=== PATIENT | male | born 1950 | race Caucasian/White ===

== ENCOUNTER → 2017-02-11 | Outpatient (CLI) | payer MEDICARE ==
[~2017-02-11] MED LIST: GLUC500T; LEVA500T; LIPI10TA; LISI10TA4; PROS5TAB
== END ==
LOC: M SMT 13:30
PROVIDERS: ATTEND Urology
DX: R97.20 Elevated prostate specific antigen [PSA] (principal)

== ENCOUNTER → 2018-02-12 | Outpatient (CLI) | payer MEDICARE ==
[2018-02-13 14:12] LABS: PSA TOTAL 2.6 ng/mL (0.0-4.0)
== END ==
LOC: M SMT 09:27
DX: N40.1 Benign prostatic hyperplasia with lower urinary tract symptoms (principal)
CPT/HCPCS: 84154

== ENCOUNTER → 2019-01-02 | Outpatient (REF) | payer MEDICARE | LOC: M LAB REF 17:14 | PROVIDERS: ATTEND Family Medicine | DX: E07.9 Disorder of thyroid, unspecified (principal) ==

== ENCOUNTER → 2019-02-25 | Outpatient (CLI) | payer MEDICARE ==
[2019-02-26 14:15] LABS: PSA TOTAL 2.4 ng/mL (0.0-4.0)
== END ==
LOC: M SMT 09:09
PROVIDERS: ATTEND Urology
DX: Z12.5 Encounter for screening for malignant neoplasm of prostate (principal)

== ENCOUNTER → 2019-03-02 | Outpatient (REF) | payer MEDICARE ==
[2019-03-02 13:33] LABS: APPEARANCE, URINE CLEAR (CLEAR); BACTERIA, URINE AUTO NEGATIVE (NEGATIVE); BILIRUBIN, URINE AUTO NEGATIVE (NEGATIVE); BLOOD, URINE BLOOD NEGATIVE (NEGATIVE); COLOR, URINE YELLOW (YELLOW); GLUCOSE, URINE (UA) AUTO 3+ mg/dL (NEGATIVE); KETONE, URINE AUTO NEGATIVE (NEGATIVE); LEUKOCYTE ESTERASE, URINE AUTO NEGATIVE (NEGATIVE); MUCUS, URINE SMALL (NEGATIVE); NITRITE, URINE AUTO NEGATIVE (NEGATIVE); PROTEIN, URINE AUTO 1+ mg/dL (NEGATIVE); RBC, URINE AUTO 0 /HPF (0-3); SPECIFIC GRAVITY URINE AUTO 1.022 (1.002-1.035); SQUAMOUS EPITHELIAL CELL UR AU 0 /HPF (0-6); UROBILINOGEN, URINE AUTO 0.2 mg/dL (0.0-2.0); WBC, URINE AUTO 0 /HPF (0-3)
== END ==
LOC: M SMT 13:01
PROVIDERS: ATTEND Nurse Practitioner Women's Health
DX: N40.1 Benign prostatic hyperplasia with lower urinary tract symptoms (principal)
CPT/HCPCS: 51798; 81001; 87086; G0463

== ENCOUNTER → 2019-03-16 | Outpatient (CLI) | payer MEDICARE ==
[2019-03-16 19:01] LABS: BLOOD UREA NITROGEN 13 MG/DL (7-18); CALCIUM LEVEL 8.8 MG/DL (8.8-10.2); CARBON DIOXIDE LEVEL 30 MEQ/L (21-32); CHLORIDE LEVEL 102 MEQ/L (98-107); CREATININE FOR GFR 1.14 MG/DL (0.70-1.30); GLOMERULAR FILTRATION RATE > 60.0 (>49); GLUCOSE, FASTING 199 MG/DL (70-100); POTASSIUM SERUM 4.2 MEQ/L (3.5-5.1); SODIUM LEVEL 139 MEQ/L (136-145)
== END ==
LOC: M SMT 14:19
PROVIDERS: ATTEND Nurse Practitioner Women's Health
DX: R10.31 Right lower quadrant pain (principal)

== ENCOUNTER → 2019-03-21 | Outpatient (CLI) | payer MEDICARE ==
[~2019-03-21] MED LIST changes: +ISOVUE-370 76% 100ML VIAL (Q9967) As Ordered ONE
--- NOTE | 2019-03-21 11:31 | REP ---
REASON FOR EXAM: Groin pain. No prior CTs for comparison. CONTRAST: 100 mL Isovue 370. No bowel preparatory contrast was administered prior to the exam. In the right groin there is a 1.6 x 2.5 x 1.3 cm sized density equal to calcific density. The bowel loops and their mesenteries are within normal limits. There is no free fluid or free air. There is prostatomegaly of mixed density. There are spinal degenerative changes along with sacroiliac joint and hip degenerative changes. IMPRESSION: Large right groin calcification of uncertain etiology possibly secondary to a calcified lymph node. This needs to be correlated clinically. Possibility of an old calcified dilated vascular structure is another possibility. No evidence of an inguinal hernia or other hernia. Abnormal appearing prostate gland correlate clinically. Other findings as described above. Electronically Signed by Kranthi Camarillo DO 03/21/2019 12:58 P
== END ==
LOC: M RAD 09:27
PROVIDERS: ATTEND Nurse Practitioner Women's Health
DX: R93.5 Abnormal findings on diagnostic imaging of other abdominal regions, including retroperitoneum (principal)
CPT/HCPCS: 72193; Q9967

== ENCOUNTER → 2019-04-06 | Outpatient (REF) | payer MEDICARE ==
[~2019-04-06] MED LIST changes: -ISOVUE-370 76% 100ML VIAL (Q9967) As Ordered ONE
[2019-04-06 18:16] LABS: FREE T3 2.3 PG/ML (2.2-4.0)
[2019-04-06 18:18] LABS: THYROID PEROXIDASE ANTIBODY 42.3 U/ML (<60.0)
[2019-04-08 09:21] LABS: THRYOGLOBULIN ANTIBODIES (ATA) < 1.0 IU/mL (0.0-0.9); THYROGLOBULIN QUANTITATIVE 4.3 ng/mL (1.4-29.2)
== END ==
LOC: M LAB REF 17:00
PROVIDERS: ATTEND Nurse Practitioner Adult Health
DX: E07.9 Disorder of thyroid, unspecified (principal)

== ENCOUNTER → 2019-11-21 | Outpatient (REF) | payer MEDICARE | LOC: M LAB REF 12:14 | PROVIDERS: ATTEND Family Medicine | DX: E07.9 Disorder of thyroid, unspecified (principal) ==

== ENCOUNTER 2020-04-16 13:39 | Emergency (ER) | payer MEDICARE ==
[~2020-04-16] VITALS: Ht 170.2 cm; Wt 98.2 kg
[2020-04-16] MEDS ORDERED: LISI10TA4 (13:47)
[2020-04-16] MEDS ORDERED: FINA5TAB2 (13:47)
[2020-04-16] MEDS ORDERED: PRAV10TA3 (13:47)
[2020-04-16] MEDS ORDERED: METFORMIN (13:47)
[2020-04-16] MEDS ORDERED: LIDOCAINE 2% 5ML JELLY UROJET TOP ONE (14:30)
[2020-04-16] MEDS ORDERED: NS 1,000 ML IV ONE (14:30)
[2020-04-16 15:18] LABS: BASO % 0.2 % (0.0-1.0); EOS % 0.6 % (0.0-3.0); HEMATOCRIT 40.1 % (42.0-52.0); HEMOGLOBIN 13.8 g/dl (13.5-17.5); LYMPH # 0.6 10^3/uL (1.5-5.0); LYMPH % 9.9 % (24.0-44.0); MEAN CORPUSCULAR HEMOGLOBIN 30.5 pg (27.0-33.0); MEAN CORPUSCULAR HGB CONC 34.4 g/dl (32.0-36.5); MEAN CORPUSCULAR VOLUME 88.7 fl (80.0-96.0); MONO # 0.5 10^3/uL (0.0-0.8); MONO % 8.6 % (0.0-5.0); NEUTROPHILS # 5.1 10^3/uL (1.5-8.5); NEUTROPHILS % 80.5 % (36.0-66.0); PLATELET COUNT, AUTOMATED 203 10^3/uL (150-450); RED BLOOD COUNT 4.52 10^6/uL (4.30-6.10); WHITE BLOOD COUNT 6.3 10^3/uL (4.0-10.0)
[2020-04-16] MEDS ORDERED: CIPROFLOXACIN 400 MG in IV 1 EA IV ONE (17:00)
[2020-04-16] MEDS ORDERED: CIPR-249 PO (17:33)
[2020-04-16 17:53] VITALS: BP 150/86
== END 2020-04-16 18:07 | disposition home or self-care (01) ==
LOC: M ED 13:39
DX: R33.9 Retention of urine, unspecified (principal); N30.90 Cystitis, unspecified without hematuria; E11.9 Type 2 diabetes mellitus without complications; I10 Essential (primary) hypertension; E78.5 Hyperlipidemia, unspecified; N40.0 Benign prostatic hyperplasia without lower urinary tract symptoms; M51.9 Unspecified thoracic, thoracolumbar and lumbosacral intervertebral disc disorder; Z85.038 Personal history of other malignant neoplasm of large intestine; Z79.899 Other long term (current) drug therapy; Z79.84 Long term (current) use of oral hypoglycemic drugs
CPT/HCPCS: 51702; 80047; 81001; 85025; 87088; 87186; 96361; 96365; 99284; J0744

== ENCOUNTER → 2020-04-26 | Outpatient (REF) | payer MEDICARE ==
[~2020-04-26] MED LIST changes: +CIPR-249 PO; +FINA5TAB2; +METFORMIN; +PRAV10TA3
== END ==
LOC: M SMT 16:49
PROVIDERS: ATTEND Urology
DX: N28.89 Other specified disorders of kidney and ureter (principal)

== ENCOUNTER → 2020-06-05 | Outpatient (REF) | payer MEDICARE | LOC: M SMT 14:27 | PROVIDERS: ATTEND Urology | DX: Z01.818 Encounter for other preprocedural examination (principal); R33.9 Retention of urine, unspecified ==

== ENCOUNTER 2020-06-07 12:50 | Day surgery (SDC) | payer MEDICARE ==
[~2020-06-07] VITALS: Ht 170.2 cm; Wt 96.6 kg
[~2020-06-07 12:50] MED LIST changes: +LIDOCAINE 2% 100MG/5ML SDV (FOR ANES.) As Ordered ONE; +MIDAZOLAM INJ 2MG/2ML VIAL (J2250 PER 1MG) As Ordered ONE; +fentaNYL 250 MCG/5 ML INJECTION (J3010) As Ordered ONE; +propofoL 200 MG/20 ML VIAL As Ordered ONE
[2020-06-07] MEDS ORDERED: ceFAZolin 2 GM/D5W 50 ML IV BAG (J0690 PER 500MG) As Ordered ONE (13:40)
[2020-06-07] MEDS ORDERED: ceFAZolin SOD 2 GM in IV 1 EA IV ONE (14:00)
[2020-06-07] MEDS ORDERED: LR 1,000 ML IV ONE (14:00)
[2020-06-07] MEDS ORDERED: HYDROmorphone HCL 2 MG/ML 1ML VIAL (J1170) As Ordered ONE (17:35)
[2020-06-07] MEDS ORDERED: KETOROLAC 60MG 2ML VIAL As Ordered ONE (17:37)
[2020-06-07] MEDS ORDERED: ONDANSETRON 4MG/2ML VIAL As Ordered ONE (17:37)
[2020-06-07] MEDS ORDERED: diphenhydrAMINE 50MG/ML VIAL (J1200) As Ordered ONE (17:37)
[2020-06-07] MEDS ORDERED: DESFLURANE 240 ML INHALANT As Ordered ONE (18:37)
[2020-06-07] MEDS ORDERED: FUROSEMIDE 100MG/10ML VIAL (J1940) As Ordered ONE (19:55)
[2020-06-07] MEDS ORDERED: KETOROLAC 30 MG/ML 1ML VIAL IV PRN (20:04)
[2020-06-07] MEDS ORDERED: fentaNYL 100 MCG/2 ML INJECTION (J3010) IV PRN (21:30)
[2020-06-07] MEDS ORDERED: ACETAMINOPHEN TAB 650MG DOSE (2X325MG) PO PRN (21:30)
[2020-06-07] MEDS ORDERED: oxyCODONE 5MG TAB PO PRN (21:30)
[2020-06-07] MEDS ORDERED: LR 1,000 ML IV SCH (21:30)
[2020-06-07] MEDS ORDERED: ONDANSETRON 4MG/2ML VIAL IV PRN (21:30)
[2020-06-07] MEDS ORDERED: MEPERIDINE INJ 25 MG/ML VIAL (J2175) IV PRN (21:30)
[2020-06-07] MEDS ORDERED: METOCLOPRAMIDE INJ 10MG/2ML VIAL (J2765 PER 1) IV PRN (21:30)
[2020-06-07 22:20] VITALS: BP 137/68
--- NOTE | 2020-07-26 09:16 | RO ---
DATE OF OPERATION: 06/07/2020 PREOPERATIVE DIAGNOSIS: Benign prostatic hyperplasia. POSTOPERATIVE DIAGNOSIS: Benign prostatic hyperplasia. PROCEDURE: Cystoscopy, button transurethral electrovaporization of the prostate. SURGEON: Mars Carvajal MD CASKET LINER: None. ANESTHESIA: General. OPERATIVE INDICATIONS: This is a 69-year-old male with benign prostatic hyperplasia and urinary retention who was brought to the operating room today for treatment. DESCRIPTION OF PROCEDURE: The patient was brought to the operating room and general anesthesia was induced. Prophylactic antibiotics were infused. He was then placed in the dorsal lithotomy position and prepped and draped in the usual sterile fashion. At thia point, a resectoscope was inserted into the urethral meatus and advanced into the bladder. Of note, the patient had trilobar benign prostatic hyperplasia. At this point, I began vaporizing hyperplastic tissue on the median lobe and then circumferentially at the bladder neck. I then started vaporizing hyperplastic tissue on both lateral lobes. I kept doing this until there was a clear channel established into the bladder. Throughout the procedure, I made sure not to vaporize too close to the ureteral orifices or distal to the verumontanum. Once there was a clear channel established, hemostasis was obtained using coagulation current. Once satisfied with hemostasis, the resectoscope was removed and an 18-[place] Farrell catheter was inserted into the bladder. The balloon was filled with 15 mm of sterile water and then the catheter was connected to gravity drainage and this marked the conclusion of the procedure. The patient was taken out of the dorsal lithotomy position; awaken from anesthesia and transferred to the recovery room in stable condition. ESTIMATED BLOOD LOSS: 50 mL. COMPLICATIONS: None. SPECIMENS: None. PLAN: The patient will follow up in the urology clinic in approximately one week for catheter removal and voiding trial. PERICO
== END 2020-06-07 22:25 | disposition home or self-care (01) ==
LOC: M SDC 12:50
PROVIDERS: ATTEND Urology
DX: N40.1 Benign prostatic hyperplasia with lower urinary tract symptoms (principal); E11.9 Type 2 diabetes mellitus without complications; Z79.84 Long term (current) use of oral hypoglycemic drugs; Z79.899 Other long term (current) drug therapy
CPT/HCPCS: 52601; J0690; J1170; J1200; J1885; J1940; J2250; J2405; J3010

== ENCOUNTER → 2021-01-15 | Outpatient (REF) | payer MEDICARE ==
[~2021-01-15] MED LIST changes: -LIDOCAINE 2% 100MG/5ML SDV (FOR ANES.) As Ordered ONE; +LISI10TA22; -MIDAZOLAM INJ 2MG/2ML VIAL (J2250 PER 1MG) As Ordered ONE; -fentaNYL 250 MCG/5 ML INJECTION (J3010) As Ordered ONE; -propofoL 200 MG/20 ML VIAL As Ordered ONE
== END ==
LOC: M LAB REF 12:02
PROVIDERS: ATTEND Family Medicine
DX: E07.9 Disorder of thyroid, unspecified (principal)

== ENCOUNTER → 2022-12-31 | Outpatient (CLI) | payer MEDICARE ==
[~2022-12-31] MED LIST changes: +LEVO25TA5 PO; -LISI10TA22; +LISI10TA22 PO; +METF500T13 PO; -PRAV10TA3; +PRAV10TA3 PO
== END ==
LOC: M LABSMTC 11:32
PROVIDERS: ATTEND Anesthesiology
DX: Z01.818 Encounter for other preprocedural examination (principal); Z11.52 Encounter for screening for COVID-19

== ENCOUNTER 2023-01-05 06:39 | Day surgery (SDC) | payer MEDICARE ==
[~2023-01-05] VITALS: Ht 170.2 cm; Wt 94.3 kg
[~2023-01-05 06:39] MED LIST changes: +CYCLOPENTOLATE 1% OPHTH SOLN 2ML BTL OD SCH; +FLURBIPROFEN 0.03% OPHTH SOLN 2.5 ML OD SCH; +LIDOCAINE 1% SDV 5ML VIAL As Ordered ONE; +PHENYLEPHRINE 2.5% OPHTH SOL 2ML OD SCH; +TETRACAINE 0.5% OPHTH SOLN 4ML OD SCH
[2023-01-05] MEDS ORDERED: LR 1,000 ML IV SCH (07:00)
[2023-01-05] MEDS ORDERED: INSULIN LISPRO (NovoLOG) PER UNIT SC PRN (07:30)
[2023-01-05] MEDS ORDERED: fentaNYL 100 MCG/2 ML INJECTION As Ordered ONE (08:47)
[2023-01-05] MEDS ORDERED: MIDAZOLAM INJ 2MG/2ML VIAL As Ordered ONE (08:47)
[2023-01-05 09:25] VITALS: BP 182/88
== END 2023-01-05 09:40 | disposition home or self-care (01) ==
LOC: M SDC 06:39
PROVIDERS: ATTEND Ophthalmology
DX: H25.11 Age-related nuclear cataract, right eye (principal); I10 Essential (primary) hypertension; E78.00 Pure hypercholesterolemia, unspecified; E11.9 Type 2 diabetes mellitus without complications; E03.9 Hypothyroidism, unspecified; F17.220 Nicotine dependence, chewing tobacco, uncomplicated; Z79.899 Other long term (current) drug therapy; Z79.890 Hormone replacement therapy; Z79.84 Long term (current) use of oral hypoglycemic drugs
CPT/HCPCS: 66984; J2250; J3010; V2632

== ENCOUNTER 2023-02-09 06:12 | Day surgery (SDC) | payer MEDICARE ==
[~2023-02-09] VITALS: Ht 170.2 cm; Wt 92.9 kg
[~2023-02-09 06:12] MED LIST changes: -CYCLOPENTOLATE 1% OPHTH SOLN 2ML BTL OD SCH; +CYCLOPENTOLATE 1% OPHTH SOLN 2ML BTL OS SCH; -FLURBIPROFEN 0.03% OPHTH SOLN 2.5 ML OD SCH; +FLURBIPROFEN 0.03% OPHTH SOLN 2.5 ML OS SCH; -LIDOCAINE 1% SDV 5ML VIAL As Ordered ONE; -PHENYLEPHRINE 2.5% OPHTH SOL 2ML OD SCH; +PHENYLEPHRINE 2.5% OPHTH SOL 2ML OS SCH; -TETRACAINE 0.5% OPHTH SOLN 4ML OD SCH; +TETRACAINE 0.5% OPHTH SOLN 4ML OS SCH
[2023-02-09] MEDS ORDERED: LIDOCAINE 1% SDV 5ML VIAL As Ordered ONE (06:29)
[2023-02-09] MEDS ORDERED: LR 1,000 ML IV SCH (07:00)
[2023-02-09] MEDS ORDERED: MIDAZOLAM INJ 2MG/2ML VIAL As Ordered ONE (07:11)
[2023-02-09] MEDS ORDERED: fentaNYL 100 MCG/2 ML INJECTION As Ordered ONE (07:11)
[2023-02-09 08:36] VITALS: BP 160/75
== END 2023-02-09 08:56 | disposition home or self-care (01) ==
LOC: M SDC 06:12
PROVIDERS: ATTEND Ophthalmology
DX: H25.12 Age-related nuclear cataract, left eye (principal); I10 Essential (primary) hypertension; E78.5 Hyperlipidemia, unspecified; E03.9 Hypothyroidism, unspecified; E11.9 Type 2 diabetes mellitus without complications; Z79.4 Long term (current) use of insulin; Z79.811 Long term (current) use of aromatase inhibitors; Z79.899 Other long term (current) drug therapy
CPT/HCPCS: 66984; J2250; J3010; V2632